=== PATIENT | male | born 1960 | race Caucasian/White ===

== ENCOUNTER 2023-01-21 20:10 | Emergency (ER) | payer OTHER, SELFPAY ==
[2023-01-21 20:11] VITALS: BP 200/90; PULSE 128; RESP 18; TEMP 36.7; O2SAT 98
[2023-01-21 20:49] VITALS: BMI 41.7
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
--- NOTE | 2023-01-21 21:02 | EKG12_ITS ---
Test Reason : Blood Pressure : / mmHG Vent. Rate : 134 BPM Atrial Rate : 134 BPM P-R Int : 150 ms QRS Dur : 100 ms QT Int : 288 ms P-R-T Axes : 052 055 053 degrees QTc Int : 430 ms Sinus tachycardia with occasional Premature ventricular complexes Incomplete right bundle branch block ST & T wave abnormality, consider anterior ischemia Abnormal ECG Confirmed by GIOVANNY OLIVER, DARNELL ([id number]), marketing editor AFIA TORRES ([id number]) on 01/30/2023 2:14:30 PM Referred By: Confirmed By:DARNELL BALTAZAR MD
[2023-01-21] MEDS: Ziprasidone IM 20 MG/ML VIAL IM (21:03)
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
[2023-01-21 22:11] LABS: Absolute Lymphocyte Count 1.91 X10^3/uL (0.83-4.51); Absolute Neutrophil Count 11.6 X10^3/uL (2.0-7.7); Basophil# 0.09 X10^3/uL; Basophil% 0.6 % (0-1); Eosinophil# 0.03 X10^3/uL; Eosinophils% 0.2 % (0-5); Hematocrit 46.1 % (40-54); Hemoglobin 15.1 g/dL (13.0-16.5); Lymphocyte # 1.91 X10^3/ul (0.83-4.51); Lymphocyte % 12.7 % (19-41); Mean Corp Hgb Conc 32.8 g/dL (32-36); Mean Corpuscular Hgb 30.3 pg (27.0-32.0); Mean Corpuscular Volume 92.4 fL (80-94); Mean Platelet Vol. 10.3 fl (6.2-12.0); Monocyte% 8.7 % (0-10); NRBC Flagged by Analyzer 0 % (0-5); Neutrophil # 11.64 X10^3/uL (2.7-7.7); Neutrophil % 77.5 % (47-70); Platelet Count 241 K/mm3 (150-450); RBC Distribution Width CV 12.9 % (11.6-14.6); RBC Distribution Width SD 43.2 fl (35.1-43.9); Red Blood Count 4.99 M/mm3 (4.6-6.2)
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
[2023-01-21 22:28] VITALS: BP 181/87; PULSE 119; RESP 16; O2SAT 99
[2023-01-21 22:31] LABS: ALB/GLOB Ratio 0.9 RATIO (0.9-2.4); AST(SGOT) 23 U/L (15-37); Alanine Aminotransfer ALT/SGPT 25 U/L (16-61); Alkaline Phosphatase 74 U/L (45-117); Anion Gap 8 (5-15); BUN 9 mg/dL (7-18); BUN/Creat Ratio 9.3 RATIO (10-20); Calcium,Total 9.5 mg/dL (8.5-10.1); Chloride 104 mmol/L (98-107); Creatinine, Serum 0.96 mg/dL (0.70-1.30); EST Glomerular Filtration Rate 85 mL/min (>60); Est Glom Filt Rate - Afr Amer 102 mL/min (>60); Estimated Creatinine Clearance 73.84 ml/min; Globulin 4.6 g/dL (2.2-4.2); Glucose 232 mg/dL (74-106); Potassium 3.3 mmol/L (3.5-5.1); Protein, Total 8.6 g/dL (6.4-8.2); Sodium Level 137 mmol/L (136-145); Troponin-I HS 30 pg/mL (3.0-78.0)
[2023-01-21 22:37] LABS: Bacteria 0 SEEN /hpf (None Seen); Mucous, Urine 0 SEEN /hpf (<or=2+); Red Blood Cells-Urine 0 SEEN /hpf (0-5); Squamous Epithelial Cells - UA 0 SEEN /hpf (0-5)
[2023-01-21 22:39] LABS: Color, Urine Yellow (Yellow); Glucose, Dipstick Normal (Normal); Ketone-Dipstick 15 mg/dl (Negative); Leukocyte Esterase-Dipstick 25 /ul (Negative); Nitrite-Dipstick Negative (Negative); Occult Blood-Urine 10 /ul (Negative); Protein-Dipstick 100 mg/dl (Negative); Urine Bilirubin Dipstick Negative (Negative); Urine Clarity Clear (Clear); Urine Urobilinogen Normal (Normal)
[2023-01-21] MEDS: traMADol 50 MG Tablet 100 MG PO (22:41)
[2023-01-21 22:46] LABS: Alcohol, Blood (Medical)-Serum < 3.0 mg/dL
[2023-01-21 22:46] LABS: White Blood Cells 0-5 SEEN /hpf (0-5)
[2023-01-21 22:51] LABS: Amphetamine Urine VISTA NEGATIVE (<1000 ng/mL); Barbiturate Urine VISTA NEGATIVE (< 200 ng/mL); Benzodiazepine Urine VISTA POSITIVE (< 200 ng/mL); Cocaine Urine VISTA NEGATIVE (< 300 ng/mL); Ecstacy Urine VISTA NEGATIVE (< 500 ng/mL); Methadone Urine VISTA NEGATIVE (< 300 ng/mL); PCP Urine VISTA NEGATIVE (< 25 ng/mL); THC Urine VISTA POSITIVE (< 50 ng/mL); Vista UDS pH Range 7
[2023-01-21] MEDS: LORazepam 1 MG Tablet PO (22:54)
--- NOTE | 2023-01-21 23:07 | RAD_ITS ---
INDICATION: Trauma EXAMINATION/TECHNIQUE: X-RAY - RIGHT XR Humerus Min 2 Views COMPARISON: None. FINDINGS: SOFT TISSUES: Unremarkable. BONES/JOINTS: No acute fracture or dislocation. Moderate degenerative changes of the acromioclavicular joint and mild degenerative changes of the glenohumeral joint. Chronic posttraumatic change of the proximal forearm. No erosive changes. RAD/Humerus min 2 Views IMPRESSION: No fracture of the right humerus. Electronically Signed: Eric Baum DO at 23:34 EST ,
[2023-01-22] VITALS (14 sets, daily range): BP systolic 128–201; BP diastolic 73–117; PULSE 16–110; RESP 16–18; TEMP 36.7; O2SAT 93–96
[2023-01-22] MEDS: LORazepam 1 MG Tablet PO ×5 (00:01→17:06)
[2023-01-22] MEDS: Acetaminophen 500 MG Tablet 1000 MG PO (00:01)
--- NOTE | 2023-01-22 00:32 | ED.RN ---
Addendum entered by Deanne Brito 01/22/23 00:35: ALSO REFERRED TO P[facility] SADLER Original Note: PT PENDING AT [facility].
[2023-01-22] MEDS: tiZANidine HCl 2 MG Tablet 4 MG PO (00:39)
[2023-01-22 01:00] LABS: Bedside Glucose 229 mg/dL (74-106)
--- NOTE | 2023-01-22 02:20 | NURSING ---
Lesa Dubose called spoke with Jose. Updated on pt behavior and meds given.
[2023-01-22] MEDS: Ziprasidone IM 20 MG/ML VIAL IM ×2 (05:03→20:15)
[2023-01-22] MEDS: Ibuprofen 400 MG Tablet 800 MG PO (05:04)
[2023-01-22 08:05] LABS: Bedside Glucose 200 mg/dL (74-106)
--- NOTE | 2023-01-22 08:10 | ED.RN ---
THIS RN ATTEMPTED TO CALL PT TO OBTAIN HOME MEDICATIONS. PHONE WENT TO VOIC[employer].
--- NOTE | 2023-01-22 08:25 | ED.RN ---
THIS RN WENT THROUGH HOME MEDICATIONS ENTERED IN COMPUTER WITH DR. ALEMAN. DR. ALEMAN VERBAL ORDER FOR HOME MEDICATIONS ORDERED.
[2023-01-22] MEDS: metFORMIN HCl 1,000 MG Tablet 1000 MG PO (08:47)
[2023-01-22] MEDS: busPIRone 5 MG Tablet 10 MG PO (11:09)
[2023-01-22] MEDS: Gabapentin 300 MG Capsule 600 MG PO ×2 (11:09→16:20)
[2023-01-22] MEDS: Atenolol 50 MG Tablet PO ×2 (11:20→17:06)
[2023-01-22] MEDS: cloNIDine HCl 0.1 MG Tablet PO (12:22)
--- NOTE | 2023-01-22 12:33 | ED.RN ---
AT 1148 THIS RN ENTERED PT ROOM. PT ON THE FLOOR WITH PT STANDING BESIDE HIM. PT TALKING AND LAUGHING. THIS RN AND GRICELDA LOZADA. HELPED PT BACK INTO BED. PT ABLE TO AMBULATE BACK TO BED. PT VERBALIZES THAT HE DOES NOT HAVE ANY INJURIES. DENIES PAIN ANYWHERE. RESPIRATIONS 19, EVEN NONLABORED. DR. ALEMAN NOTIFIED. PT DENIES ANY FURTHER NEEDS AT 1150.
[2023-01-22] MEDS: Acetaminophen 325 MG Tablet 650 MG PO (12:35)
[2023-01-22] MEDS: traMADol 50 MG Tablet 100 MG PO (12:35)
--- NOTE | 2023-01-22 12:35 | ED.RN ---
mary called to update on pt placement. PT REMAINS PENDING AT [facility]. REFERRAL TO [facility] BUT LIKELY NO BEDS UNTIL SUNDAY. REFERRAL SENT TO [facility])
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
--- NOTE | 2023-01-22 17:59 | ED.RN ---
TRANSPORT CANNOT GET HERE TO [facility] OPER[facility] PATIENT UNTIL 0800 01/23/23. THIS RN SPOKE WITH Luke [facility] WHO STATED THIS IS OK.
[2023-01-22] MEDS: amLODIPine 5 MG Tablet PO (20:15)
[2023-01-22] MEDS: traMADol 50 MG Tablet PO (20:17)
--- NOTE | 2023-01-23 02:49 | ED.RN ---
Pt called out requesting pain meds, Dr. Sarabia orders ultram 50mg. Took medication in to room, handed to pt, told him it was ultram and he states I ain't taking that fucking shit, it doesn't fucking work, give me something else. Per Dr. Sarabia, no other orders to be given. Advised pt of same, he is upset and states I'm going to call this piece of [facility] and complain about this fucking place. Again offered ultram and still declined.
[2023-01-23] MEDS: traMADol 50 MG Tablet PO (04:17)
--- NOTE | 2023-01-23 04:18 | ED.RN ---
[place] PD arrived to ED, states pt was calling dispatch complaining that he wanted pain medication. PD in to talk to pt, PD talks pt in to taking pain medication.
[2023-01-23 08:19] VITALS: BP 249/156; PULSE 83; RESP 18; O2SAT 92
[2023-01-23 08:35] LABS: Bedside Glucose 372 mg/dL (74-106)
[2023-01-23] MEDS: traMADol 50 MG Tablet 100 MG PO (09:15)
[2023-01-23] MEDS: cloNIDine HCl 0.1 MG Tablet PO (09:15)
[2023-01-23] MEDS: amLODIPine 5 MG Tablet PO (09:16)
[2023-01-23] MEDS: Glimepiride 4 MG Tablet PO (09:16)
[2023-01-23] MEDS: metFORMIN HCl 1,000 MG Tablet 1000 MG PO (09:17)
[2023-01-23] MEDS: Gabapentin 300 MG Capsule 600 MG PO (09:28)
[2023-01-23] MEDS: Acetaminophen 500 MG Tablet 1000 MG PO (09:44)
[2023-01-23 10:34] VITALS: BP 199/105; PULSE 77; RESP 18; O2SAT 94
[2023-01-23] MEDS: LORazepam 1 MG Tablet PO (10:37)
[2023-01-23] MEDS: cloNIDine HCl 0.2 MG Tablet PO (10:45)
[2023-01-23 10:57] VITALS: PULSE 72; RESP 18; O2SAT 92
[2023-01-23 11:04] VITALS: PULSE 74; RESP 18; O2SAT 95
[2023-01-23 11:24] VITALS: BP 146/85; PULSE 71; RESP 18; O2SAT 94
--- NOTE | 2023-01-23 11:37 | ED.RN ---
THIS RN CALLED REPORT TO [facility] AT 1135. REPORT TAKEN BY GRICELDA GRIJALVA AND GRICELDA DINERO.
[2023-01-23 12:18] VITALS: PULSE 74; RESP 16; O2SAT 95
== END 2023-01-23 12:36 ==
PROVIDERS: Emergency Provider Emergency Medicine; Visit Provider Emergency Medicine
DX: R45.851 Suicidal ideations (principal); F31.9 Bipolar disorder, unspecified; I45.10 Unspecified right bundle-branch block; R03.0 Elevated blood-pressure reading, without diagnosis of hypertension; F41.1 Generalized anxiety disorder; R29.6 Repeated falls; R45.1 Restlessness and agitation; R45.6 Violent behavior; Z79.899 Other long term (current) drug therapy
CPT/HCPCS: 70450; 73060; 73630; 80053; 80307; 81001; 82077; 82962; 84484; 85025; 87811; 93005; 96372; 99285; J3486